=== PATIENT | female | born 1930 | race Caucasian/White ===

== ENCOUNTER → 2019-10-13 | Outpatient (CLI) | payer MEDICARE, MEDICAID ==
[~2019-10-13] MED LIST: AMLO10TA80 PO; ASPI-1497 PO; ASPI325T85 PO; ATEN50TA PO; ATOR20TA65 PO; CHOL500010 PO; CLOP75TA4 PO; DOCU-150 PO; FURO20TA4 PO; GLIM4TAB36 PO; LINA5TAB PO; LISI-604 PO; LOSA50TA41 PO; METF-416 PO; OMEP20TA2 PO; SERT50TA12 PO; SIMV-43 PO; TRAM50TA3 PO; VIT D PO
== END | disposition home or self-care (01) ==
LOC: RAD 10:26
PROVIDERS: ATTEND Internal Medicine Nephrology
DX: T14.90XA Injury, unspecified, initial encounter (principal); W19.XXXA Unspecified fall, initial encounter; Y93.89 Activity, other specified; Y92.89 Other specified places as the place of occurrence of the external cause; Y99.8 Other external cause status
CPT/HCPCS: 73080

== ENCOUNTER 2021-07-26 00:43 | Inpatient (IN) | payer MEDICARE, MEDICAID ==
[~2021-07-26] VITALS: Ht 160 cm; Wt 57.2 kg
[~2021-07-26 00:43] MED LIST changes: +ASPI-867 PO; -ASPI325T85 PO; +CLOP-31 PO; -CLOP75TA4 PO; -LISI-604 PO; +LISI20TA31 PO; +SERT-422 PO; -SERT50TA12 PO
[2021-07-26] MEDS ORDERED: SODIUM CHLORIDE 0.9% 1,000 ML IV ONE (01:15)
[2021-07-26 01:36] LABS: CHLORIDE 103 mEq/L (98-107)
[2021-07-26 01:40] LABS: BASOPHILS % 0.9 % (0.0-2.0); HEMATOCRIT. 32.6 % (36.0-48.0); HEMOGLOBIN. 10.8 g/dL (12.0-16.0); LYMPHOCYTES % 27.3 % (20.0-50.0); MEAN CORPUSCULAR HEMOGLOBIN 28.5 pg (28.0-32.0); MEAN CORPUSCULAR VOLUME 86.6 fL (81.0-99.0); MEAN PLATELET VOLUME 8.5 fl (7.4-10.4); MONOCYTES % 4.5 % (2.0-8.0); NEUTROPHILS % 65.3 % (40.0-76.0); PLATELET 242 x1000/uL (130-400); RED BLOOD CELL COUNT 3.77 mill/uL (4.2-5.4); RED CELL DISTRIBUTION WIDTH 15.1 % (11.6-14.6)
[2021-07-26 01:48] LABS: CLARITY URINE CLEAR (CLEAR); COLOR URINE YELLOW (YELLOW); KETONES URINE NEGATIVE (NEGATIVE); LEUKOCYTE ESTERASE URINE NEGATIVE (NEGATIVE); NITRITE URINE NEGATIVE (NEGATIVE); OCCULT BLOOD URINE 1+ (NEGATIVE); PH URINE 6.5 (4.5-8.0); PROTEIN URINE 3+ (NEGATIVE); SPECIFIC GRAVITY URINE 1.013 (1.005-1.030); UROBILINOGEN URINE 0.2 E.U./dL (0.2-1.0)
[2021-07-26] MEDS ORDERED: ONDANSETRON HCL 4MG/2ML INJ IV ONE (02:15)
[2021-07-26] MEDS ORDERED: MORPHINE SULFATE 2 MG/ML CPJ (NOT FOR IM USE) IV ONE (02:15)
[2021-07-26] MEDS ORDERED: CEFTRIAXONE 1 G PREMIX 50 ML IV ONE (04:00)
[2021-07-26] MEDS ORDERED: AZITHROMYCIN 500MG/250ML 250 ML IV ONE (04:00)
[2021-07-26] MEDS ORDERED: MORPHINE SULFATE 2 MG/ML CPJ (NOT FOR IM USE) IV PRN (09:15)
[2021-07-26] MEDS ORDERED: NALOXONE HCL 0.4MG/ML VIAL IV PRN (09:30)
[2021-07-26] MEDS: HYDROCODONE/ACETAMINOPHEN 5/325MG TABLET PO PRN (12:41)
[2021-07-26] MEDS ORDERED: ACETAMINOPHEN 325MG TABLET PO PRN (13:00)
[2021-07-26] MEDS ORDERED: GUAIFENESIN 200MG/10ML SUGAR FREE UDC PO PRN (13:00)
[2021-07-26] MEDS ORDERED: MAGNESIUM/ALUMINUM HYDROXIDE/SIMETHICONE 30ML UDC PO PRN (13:00)
[2021-07-26] MEDS ORDERED: IPRATROPIUM/ALBUTEROL 0.5-3(2.5)MG/3ML NEB HHN PRN (13:00)
[2021-07-26] MEDS ORDERED: ONDANSETRON HCL 4MG/2ML INJ IV PRN (13:00)
[2021-07-26] MEDS: CLONIDINE 0.1MG TABLET PO PRN (13:28)
[2021-07-26] MEDS ORDERED: ENOXAPARIN 40MG/0.4ML SYR SUBCUT SCH (14:00)
[2021-07-26] MEDS ORDERED: DEXTROSE 50% WATER 50ML SYRINGE IV PRN ×2 (14:15)
[2021-07-26] MEDS ORDERED: AMLODIPINE 5MG TABLET PO SCH (14:15)
[2021-07-26] MEDS: INSULIN LISPRO 100 UNITS/ML SUBCUT SCH ×3 (14:30→21:43)
[2021-07-26] MEDS: BLOOD SUGAR DIAGNOSTIC STRIP TEST SCH ×3 (14:30→21:34)
[2021-07-26 15:00] VITALS: BP 144/66
[2021-07-26] MEDS: ASPIRIN 81MG TABLET PO SCH (16:34)
[2021-07-26] MEDS: AMLODIPINE 2.5MG TABLET PO SCH (16:34)
[2021-07-26] MEDS: NEBIVOLOL HCL 5 MG TABLET PO SCH (16:34)
[2021-07-26] MEDS: OMEPRAZOLE 20MG CAPSULE EXTENDED RELEASE PO SCH (16:34)
[2021-07-26] MEDS: LIDOCAINE 5% PATCH TOP SCH (16:35)
[2021-07-26 20:48] VITALS: BP 110/52
[2021-07-26] MEDS: ENOXAPARIN 30MG/0.3ML SYR SUBCUT SCH (21:41)
[2021-07-26] MEDS: ATORVASTATIN CALCIUM 20MG TABLET PO SCH (21:42)
[2021-07-27] VITALS: BP 115/55
[2021-07-27 03:11] LABS: METHADONE URINE SCREEN NEGATIVE (NEGATIVE); OPIATES URINE SCREEN PRESUMTIVE POSITIVE (NEGATIVE)
[2021-07-27 03:12] LABS: *AMPHETAMINES SCREEN URINE NEGATIVE (NEGATIVE); *BARBITURATES SCREEN URINE NEGATIVE (NEGATIVE); *BENZODIAZEPINES SCREEN URINE PRESUMTIVE POSITIVE (NEGATIVE); CANNABINOID URINE SCREEN NEGATIVE (NEGATIVE); PHENCYCLIDINE URINE SCREEN NEGATIVE (NEGATIVE)
[2021-07-27 03:13] LABS: *COCAINE SCREEN URINE NEGATIVE (NEGATIVE)
[2021-07-27 04:00] VITALS: BP 135/61
[2021-07-27] MEDS: OMEPRAZOLE 20MG CAPSULE EXTENDED RELEASE PO SCH (06:42)
[2021-07-27] MEDS: HYDROCODONE/ACETAMINOPHEN 5/325MG TABLET PO PRN ×2 (06:43→17:54)
[2021-07-27] MEDS: BLOOD SUGAR DIAGNOSTIC STRIP TEST SCH ×4 (07:20→21:40)
[2021-07-27 07:23] LABS: BASOPHILS % 0.3 % (0.0-2.0); EOSINOPHILS % 1.4 % (0.0-5.0); HEMATOCRIT. 32.1 % (36.0-48.0); HEMOGLOBIN. 10.3 g/dL (12.0-16.0); LYMPHOCYTES % 27.9 % (20.0-50.0); MEAN CORPUSCULAR HEMOGLOBIN 27.8 pg (28.0-32.0); MEAN CORPUSCULAR VOLUME 86.5 fL (81.0-99.0); MEAN PLATELET VOLUME 8.9 fl (7.4-10.4); MONOCYTES % 5.9 % (2.0-8.0); NEUTROPHILS % 64.5 % (40.0-76.0); PLATELET 265 x1000/uL (130-400); RED BLOOD CELL COUNT 3.71 mill/uL (4.2-5.4); RED CELL DISTRIBUTION WIDTH 14.7 % (11.6-14.6)
[2021-07-27 07:38] LABS: PHOSPHORUS 3.5 mg/dL (2.5-4.9)
[2021-07-27 07:41] LABS: T4 FREE 1.3 ng/dL (0.76-1.46)
[2021-07-27] MEDS: INSULIN LISPRO 100 UNITS/ML SUBCUT SCH ×5 (07:50→21:36)
[2021-07-27 08:00] VITALS: BP 126/52
[2021-07-27] MEDS: LIDOCAINE 5% PATCH TOP SCH (08:48)
[2021-07-27] MEDS ORDERED: SODIUM POLYSTYRENE SULFONATE 15 G/60 ML BOT PO SCH (10:00)
[2021-07-27] MEDS: NEBIVOLOL HCL 5 MG TABLET PO SCH (10:37)
[2021-07-27] MEDS: AMLODIPINE 2.5MG TABLET PO SCH (10:37)
[2021-07-27] MEDS: ASPIRIN 81MG TABLET PO SCH (10:37)
[2021-07-27 11:44] VITALS: BP 128/52
[2021-07-27 16:00] VITALS: BP 130/50
[2021-07-27 20:00] VITALS: BP 142/53
[2021-07-27] MEDS: ATORVASTATIN CALCIUM 20MG TABLET PO SCH (21:34)
[2021-07-27] MEDS: ENOXAPARIN 30MG/0.3ML SYR SUBCUT SCH (21:35)
[2021-07-28] VITALS (7 sets, daily range): BP systolic 119–171; BP diastolic 52–94
[2021-07-28] MEDS: CLONIDINE 0.1MG TABLET PO PRN (06:31)
[2021-07-28] MEDS: OMEPRAZOLE 20MG CAPSULE EXTENDED RELEASE PO SCH (06:32)
[2021-07-28] MEDS: BLOOD SUGAR DIAGNOSTIC STRIP TEST SCH ×4 (06:32→21:00)
[2021-07-28 07:21] LABS: BASOPHILS % 0.2 % (0.0-2.0); EOSINOPHILS % 2.1 % (0.0-5.0); HEMATOCRIT. 30.5 % (36.0-48.0); HEMOGLOBIN. 10.2 g/dL (12.0-16.0); LYMPHOCYTES % 21.7 % (20.0-50.0); MEAN CORPUSCULAR HEMOGLOBIN 29.1 pg (28.0-32.0); MEAN PLATELET VOLUME 8.4 fl (7.4-10.4); MONOCYTES % 6.7 % (2.0-8.0); NEUTROPHILS % 69.3 % (40.0-76.0); PLATELET 207 x1000/uL (130-400); RED CELL DISTRIBUTION WIDTH 14.5 % (11.6-14.6)
[2021-07-28 07:26] LABS: CHLORIDE 102 mEq/L (98-107)
[2021-07-28] MEDS: INSULIN LISPRO 100 UNITS/ML SUBCUT SCH ×5 (09:17→21:12)
[2021-07-28] MEDS: HYDROCODONE/ACETAMINOPHEN 5/325MG TABLET PO PRN ×2 (09:18→21:13)
[2021-07-28] MEDS: ASPIRIN 81MG TABLET PO SCH (09:18)
[2021-07-28] MEDS: AMLODIPINE 5MG TABLET PO SCH (09:26)
[2021-07-28] MEDS: LIDOCAINE 5% PATCH TOP SCH (09:27)
[2021-07-28] MEDS: NEBIVOLOL HCL 5 MG TABLET PO SCH (11:26)
[2021-07-28] MEDS: LACTULOSE 20G/30ML UDC PO SCH ×3 (12:56→23:04)
[2021-07-28] MEDS ORDERED: IOHEXOL-350 100 ML BOTTLE ONE (20:09)
[2021-07-28] MEDS: ENOXAPARIN 30MG/0.3ML SYR SUBCUT SCH (21:12)
[2021-07-28] MEDS: ATORVASTATIN CALCIUM 20MG TABLET PO SCH (21:12)
[2021-07-29 04:00] VITALS: BP 160/57
[2021-07-29] MEDS: LACTULOSE 20G/30ML UDC PO SCH ×2 (06:47→13:16)
[2021-07-29] MEDS: OMEPRAZOLE 20MG CAPSULE EXTENDED RELEASE PO SCH (06:47)
[2021-07-29] MEDS: BLOOD SUGAR DIAGNOSTIC STRIP TEST SCH ×2 (06:51→12:16)
[2021-07-29 07:02] LABS: BASOPHILS % 0.2 % (0.0-2.0); HEMATOCRIT. 28.6 % (36.0-48.0); HEMOGLOBIN. 9.5 g/dL (12.0-16.0); LYMPHOCYTES % 18.6 % (20.0-50.0); MEAN CORPUSCULAR HEMOGLOBIN 28.7 pg (28.0-32.0); MEAN CORPUSCULAR VOLUME 86.6 fL (81.0-99.0); MEAN PLATELET VOLUME 8.9 fl (7.4-10.4); MONOCYTES % 8.1 % (2.0-8.0); NEUTROPHILS % 70.1 % (40.0-76.0); PLATELET 204 x1000/uL (130-400); RED BLOOD CELL COUNT 3.31 mill/uL (4.2-5.4); RED CELL DISTRIBUTION WIDTH 14.6 % (11.6-14.6)
[2021-07-29 08:23] VITALS: BP 161/59
[2021-07-29] MEDS: NEBIVOLOL HCL 5 MG TABLET PO SCH (09:00)
[2021-07-29] MEDS: LIDOCAINE 5% PATCH TOP SCH (09:00)
[2021-07-29] MEDS ORDERED: CALCITONIN,SALMON, 3.7 ML NASAL SPRAY ONENSTRL SCH (09:00)
[2021-07-29] MEDS ORDERED: CALCIUM CARBONATE/VITAMIN D3 500MG TABLET PO SCH (09:00)
[2021-07-29] MEDS: ASPIRIN 81MG TABLET PO SCH (09:18)
[2021-07-29] MEDS: AMLODIPINE 5MG TABLET PO SCH (09:18)
[2021-07-29] MEDS: INSULIN LISPRO 100 UNITS/ML SUBCUT SCH ×2 (09:19→13:15)
[2021-07-29] MEDS: HYDROCODONE/ACETAMINOPHEN 5/325MG TABLET PO PRN (10:37)
[2021-07-29 12:26] VITALS: BP 120/61
[2021-07-29] MEDS ORDERED: NA PHOS,M-B/NA PHOS,DI-BA ENEMA 118ML PR NR (13:30)
[2021-07-29] MEDS ORDERED: OCD PO (13:59)
[2021-07-29] MEDS ORDERED: CALC3.8S ONENSTRL (13:59)
[2021-07-29] MEDS ORDERED: AMLO10TA80 PO (13:59)
[2021-07-29 16:04] VITALS: BP 118/55
[2021-07-29 16:59] VITALS: BP 118/55
[2021-07-29] MEDS ORDERED: AMLODIPINE 5MG TABLET PO SCH (17:00)
== END 2021-07-29 17:55 | disposition home health service (06) | DRG 73 ==
LOC: ER 00:43 → MICUSO 04:01 → EDBEDREQ 04:14 → EDBEDREQTM 04:14 → ENRESERV 08:41 → 6WST 15:33
PROVIDERS: ADMIT Internal Medicine Nephrology; ATTEND Internal Medicine Nephrology
DX: G90.8 Other disorders of autonomic nervous system (principal); G93.41 Metabolic encephalopathy; S32.511A Fracture of superior rim of right pubis, initial encounter for closed fracture; S22.42XA Multiple fractures of ribs, left side, initial encounter for closed fracture; S22.22XA Fracture of body of sternum, initial encounter for closed fracture; I10 Essential (primary) hypertension; E78.5 Hyperlipidemia, unspecified; E87.5 Hyperkalemia; R53.81 Other malaise; E11.9 Type 2 diabetes mellitus without complications; S61.412A Laceration without foreign body of left hand, initial encounter; I25.10 Atherosclerotic heart disease of native coronary artery without angina pectoris; D64.9 Anemia, unspecified; D72.829 Elevated white blood cell count, unspecified; Z20.822 Contact with and (suspected) exposure to COVID-19; E78.00 Pure hypercholesterolemia, unspecified; R26.9 Unspecified abnormalities of gait and mobility; I27.21 Secondary pulmonary arterial hypertension; M85.80 Other specified disorders of bone density and structure, unspecified site; W18.39XA Other fall on same level, initial encounter; S41.112A Laceration without foreign body of left upper arm, initial encounter; Z79.02 Long term (current) use of antithrombotics/antiplatelets; Z79.84 Long term (current) use of oral hypoglycemic drugs; Z79.899 Other long term (current) drug therapy; Z82.49 Family history of ischemic heart disease and other diseases of the circulatory system; Z95.5 Presence of coronary angioplasty implant and graft; Y93.89 Activity, other specified; Y99.8 Other external cause status; Y92.098 Other place in other non-institutional residence as the place of occurrence of the external cause
CPT/HCPCS: 36415; 70551; 71045; 71110; 71120; 71275; 72192; 73130; 73700; 80048; 80053; 80061; 80305; 81003; 82962; 83036; 83605; 83735; 83880; 84100; 84439; 84443; 84484; 85025; 85379; 93005; 93306; 93880; 97162; 97166; 99285; J0456; J0696; J1650; J1815; J2270; J2405; J7030; Q9967; U0003; U0005